=== PATIENT | female | born 1940 | race Caucasian/White ===

== ENCOUNTER 2023-10-01 06:16 | Inpatient (IN) | payer OTHER, SELFPAY ==
--- NOTE | 2023-08-27 09:19 | CM ---
Patient is scheduled for an elective R TKR on 10/01/23. Spoke with patient prior to surgery via telephone. Introduced role of Orthopedic Navigator. Patient reports that she lives with her in a one story home. There are three steps to enter.
She currently functions independently. She uses cane when she goes out of the house and a rollator for long distances. She has no other DME. She has never had VN services. PCP is Jeanette Batres.
Discussed orthopedic program and post surgical plans. Reviewed anticipated length of stay and that goal is for her to return home at discharge. Also reviewed outpatient PT. Patient is in agreement with tentative plan and will go directly to
outpatient PT. She will have support from her when she goes home.
Patient will complete online education.
Plan: Orthopedic Navigator will remain available to assist with the care of patient and will reassess discharge needs after surgery.
[2023-09-10 12:08] VITALS: BMI 31.2
[2023-09-10 13:48] LABS: Hematocrit 36.6 % (37.0-47.0); Hemoglobin 12.1 g/dL (12.0-16.0); Mean Corp Hgb Conc. 33.1 g/dL (33.0-37.0); Mean Corpuscular Volume 90.8 fL (81.0-99.0); Mean Platelet Volume 10.7 fL (7.4-10.4); Platelet Count 342 10^3/uL (130-400); Red Blood Cell Count 4.03 10^6/uL (4.20-5.40); Red Cell Dist. Width 13.4 % (11.5-14.5); White Blood Cell Count 10.4 10^3/uL (4.8-10.8)
[2023-09-10 14:04] LABS: ALT (SGPT) 13 U/L (0-35); AST (SGOT) 20 U/L (14-36); Albumin 3.8 g/dl (3.5-5.0); Alkaline Phosphatase 66 U/L (38-126); Blood Urea Nitrogen 22 mg/dl (7-17); Calcium 9.7 mg/dl (8.4-10.2); Carbon Dioxide 29 mmol/L (22-30); Chloride 98 mmol/L (98-107); Estimated Creatinine Clearance 49 ml/min; Glucose 91 mg/dl (70-99); Sodium 136 mmol/L (135-145); Total Bilirubin 0.4 mg/dl (0.2-1.3); Total Protein 7.2 g/dl (6.3-8.2)
[2023-09-10 14:09] LABS: Potassium 5.8 mmol/L (3.5-5.1)
[2023-09-10 16:40] VITALS: BMI 31.2
[2023-09-11 10:20] LABS: Glycohemoglobin (HgbA1c) 6.1 % (4.0-5.6)
[2023-10-01] VITALS (11 sets, daily range): BP systolic 116–156; BP diastolic 44–90; PULSE 67; BMI 31.2
[2023-10-01] MEDS: NORMOSOL-R 1000 IV (08:55)
[2023-10-01] MEDS: TYLENOL 650 MG PO ×4 (09:09→20:22)
[2023-10-01] MEDS: MORPHINE SULFATE 1 MG IV (12:54)
[2023-10-01] MEDS: NSS 1000 IV (13:01)
[2023-10-01] MEDS: ROXICODONE 5 MG PO (13:05)
[2023-10-01] MEDS: ROXICODONE 10 MG PO (14:09)
--- NOTE | 2023-10-01 14:47 | PTCARENOTE ---
Pt received from PACU into room 2107. R knee incision with some minor local swelling, ice pack in place. PT complains of knee pain at 6/10. Medicated with 10 of oxycodone prior to PT's initial assessment. NSR on tele, + radial/PT/DP pulses. Breath
sounds clear. Pt ordered lunch and is currently working with PT. Call spencer within reach, pt makes needs known.
--- NOTE | 2023-10-01 15:11 | W.PN.UPDATE ---
Update Note
Progress Note Update
R knee OA s/p R TKA w/ Dr Meraz 10/01/23
DVT prophylaxis - Eliquis at modified dosing, b/l venous foot pumps
- Discussed with surgeon - will resume home Eliquis dosing POD 5 due to previous provoked submassive PE
HTN - + parameters - monitor BP
PACs, asymptomatic, and PAF - monitor on tele
- Continue BB
- Eliquis as stated above
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
- Promote frequent and early ambulation as tolerated
- Plasma flow devices HIGHLY encouraged for use upon d/c
Acute blood loss anemia after spinal surgery, requiring blood transfusion - pre-op hgb thankfully stable
- Non-invasive hgb in AM
Hyperkalemia, improving on repeat labs - 2 gram potassium diet ordered
- NSS over Normosol post-op
Mild to moderate mitral regurgitation
Venous varicosities
Chronic postnasal drip
Questionable TIA 2019
Lumbar degenerative disc disease
Left-sided breast cancer, 2007, status post left lumpectomy
Thymoma, status post thymectomy 2013
Basal cell carcinoma, status post MOHS
Recurrent Lyme disease
Osteoporosis
COVID-19, 07/2023, without residual side effects
Hearing impairment bilaterally
Prediabetes, A1c 6.1
Obesity, BMI 31.2
[2023-10-01] MEDS: ANCEF 5 IV (17:01)
[2023-10-01] MEDS: LOPRESSOR 25 MG PO (17:02)
[2023-10-01] MEDS: SENOKOT 17.1999999999999993 MG PO (20:22)
[2023-10-01] MEDS: BACTROBAN 2% OINTMENT 1 APPLIC NASAL (20:22)
[2023-10-01] MEDS: ELIQUIS 2.5 MG PO (20:22)
[2023-10-01] MEDS: COLACE 100 MG PO (20:23)
[2023-10-01] MEDS: DECADRON 4 MG PO (20:23)
[2023-10-02] MEDS: TYLENOL PO ×2 (00:18→04:54)
[2023-10-02] MEDS: ANCEF 5 IV (02:43)
[2023-10-02 03:53] VITALS: BP 114/55
[2023-10-02 08:06] VITALS: BP 130/52
--- NOTE | 2023-10-02 08:58 | CM ---
Reviewed chart and held rounds with PT, OT and nursing. Patient admitted as planned for elective R TKR. Met with patient at bedside. Confirmed information previously obtained for assessment. Also discussed discharge plans. The plan is for patient to
return home at discharge. She will have support from her when she goes home. Patient will go directly to outpatient PT and will go to [facility]. She has an appointment scheduled for Sunday, 10/03.
Patient has a rollator, cane and rolling walker at home.
She will use [facility] pharmacy for discharge prescriptions.
[2023-10-02] MEDS: DECADRON 4 MG PO (09:27)
[2023-10-02] MEDS: SENOKOT 17.1999999999999993 MG PO (09:27)
[2023-10-02] MEDS: ELIQUIS 2.5 MG PO (09:27)
[2023-10-02] MEDS: TYLENOL 650 MG PO (09:27)
[2023-10-02] MEDS: LOPRESSOR 12.5 MG PO (09:27)
[2023-10-02] MEDS: COLACE 100 MG PO (09:28)
[2023-10-02] MEDS: BACTROBAN 2% OINTMENT 1 APPLIC NASAL (09:29)
[2023-10-02 09:45] VITALS: BP 138/59; PULSE 75; O2SAT 97
--- NOTE | 2023-10-02 09:49 | W.PN.ORTHO ---
Today's Communication / Plan
-
Await OT recs. Pt did well w/ PT this AM.
D/c later today if remaining clinically stable.
Assessment
.
Distal Motor Intact: Yes
Dressing:
Scant old incisional bleeding. Dressing otherwise C/D/I.
Assessment:
R knee OA s/p R TKA w/ Dr Meraz 10/01/23
DVT prophylaxis - Eliquis at modified dosing, b/l venous foot pumps
- Discussed with surgeon - will resume home Eliquis dosing POD 5 due to previous provoked submassive PE
HTN - + parameters - BPs stable
PACs, asymptomatic, and PAF - maintaining NSR on tele post-op
- Continue BB
- Eliquis as stated above
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
- Promote frequent and early ambulation as tolerated
- Plasma flow devices HIGHLY encouraged for use upon d/c
Acute blood loss anemia after spinal surgery, requiring blood transfusion - pre-op hgb thankfully stable
- Non-invasive hgb 11.6 POD 1
Hyperkalemia, improving on repeat labs - 2 gram potassium diet ordered
- NSS over Normosol post-op
Mild to moderate mitral regurgitation
Venous varicosities
Chronic postnasal drip
Questionable TIA 2019
Lumbar degenerative disc disease
Left-sided breast cancer, 2007, status post left lumpectomy
Thymoma, status post thymectomy 2013
Basal cell carcinoma, status post MOHS
Recurrent Lyme disease
Osteoporosis
COVID-07/2023, without residual side effects
Hearing impairment bilaterally
Prediabetes, A1c 6.1
Obesity, BMI 31.2
Plan
.
Surgery / Date: R TKA w/ Dr Meraz 10/01/23
DVT Prophylaxis: Other (Eliquis at modified dosing )
Activity:
Out of bed.
PT/OT
Discharge Plan: Home w/ Outpatient PT
Subjective
.
.:
Patient resting comfortably in her chair this AM.
R knee pain overall well controlled w/ minimal pain meds.
Denies any new significant complaints.
Eager for potential d/c today.
Vital Signs and Labs
.
Vital Signs and Labs:
Lab Results
09/10/23 12:17
09/10/23 12:17
Temp Pulse Resp BP Pulse Ox
98.2 F 59 18 130/52 97
10/02/23 08:06 10/02/23 08:06 10/02/23 08:06 10/02/23 08:06 10/02/23 08:06
Non-invasive Hgb result: 11.6
Physical Exam
-
HEENT: No pallor, cyanosis, or jaundice. Throat clear.
NECK: Supple. No JVD.
RESPIRATORY: Lungs clear to auscultation.
CVS: S1, S2 normal. RRR.�
ABDOMEN: Soft, non-tender. No distension. Obese.
EXTREMITIES: Mild post-surgical R knee edema. Strength equal, no calf pain with palpation/dorsiflexion. Calves soft.
RAILWAYS ASSISTANT: AOx3. No focal deficits. web development director grossly intact
[2023-10-02 11:03] VITALS: BP 137/58; PULSE 68; O2SAT 98
[2023-10-02 11:07] VITALS: BP 137/58
--- NOTE | 2023-10-02 11:22 | W.DS.TRANS ---
DC Summary - Pointing Machine Operator
-
Discharge Instructions:
Sleep Apnea Risk Low
Discharge Diagnosis/Procedures R knee OA s/p R TKA w/ Dr Meraz 10/01/23
Diet Regular
Activity As tolerated,With Walker
Driving Restrictions Not until seen by your Dr
Bathing Restrictions OK to Shower
Other Services PT
Wound Care Dressing to be removed 1 week post-surgery.
[place] to be removed at 2 week follow-up
appointment with surgeon's office.
Instructions:
Stand-Alone Forms: Total Hip/Knee Replacement D/C
Changes to Home Medications: Yes
Discharge Medications:
DC Medications w/original date entered in [employer]
B-complex with vitamin C 1 cap PO DAILY 09/04/23
apixaban 5 mg tablet (Eliquis) 5 mg PO BID 09/04/23
metoprolol tartrate 25 mg tablet 12.5 mg PO DAILY 09/04/23
metoprolol tartrate 25 mg tablet 25 mg PO QPM 09/04/23
mupirocin 2 % topical ointment 1 applic intranasal BID #1 tube 09/10/23
acetaminophen 500 mg tablet (Tylenol Extra Strength) 1,000 mg PO Q6H #60 tabs 10/02/23
apixaban 2.5 mg tablet (Eliquis) 2.5 mg PO BID #7 tabs 10/02/23
dexamethasone 4 mg tablet 4 mg PO BID #5 tabs 10/02/23
docusate sodium 100 mg capsule 100 mg PO BID #30 caps 10/02/23
ondansetron HCl 4 mg tablet 4 mg PO Q6H PRN nausea and vomiting #30 tabs 10/02/23
oxycodone 5 mg tablet 5 - 10 mg PO Q6H PRN moderate-severe pain #30 tabs 10/02/23
sennosides 8.6 mg tablet (Senna Lax) 17.2 mg PO BID #30 tabs 10/02/23
Home Medication Changes
acetaminophen 500 mg tablet (Tylenol Extra Strength) 1,000 mg PO Q6H #60 tabs 10/02/23
apixaban 2.5 mg tablet (Eliquis) 2.5 mg PO BID #7 tabs 10/02/23 - until POD 5
dexamethasone 4 mg tablet 4 mg PO BID #5 tabs 10/02/23
docusate sodium 100 mg capsule 100 mg PO BID #30 caps 10/02/23
ondansetron HCl 4 mg tablet 4 mg PO Q6H PRN nausea and vomiting #30 tabs 10/02/23
oxycodone 5 mg tablet 5 - 10 mg PO Q6H PRN moderate-severe pain #30 tabs 10/02/23
sennosides 8.6 mg tablet (Senna Lax) 17.2 mg PO BID #30 tabs 10/02/23
Pending Results: No
== END 2023-10-02 12:23 | disposition home or self-care (01) | DRG 470 ==
LOC: 2 SOUTH 06:16
PROVIDERS: ADMITTING PHYSICIAN Specialist; FAMILY PHYSICIAN Family Medicine
PROC: 0SRC0J9 Replacement of Right Knee Joint with Synthetic Substitute, Cemented, Open Approach (ICD-10-PCS; 2023-10-01)
DX: M17.11 Unilateral primary osteoarthritis, right knee (principal); I10 Essential (primary) hypertension; I48.0 Paroxysmal atrial fibrillation; Z68.31 Body mass index [BMI] 31.0-31.9, adult; E66.9 Obesity, unspecified; E87.5 Hyperkalemia; R73.03 Prediabetes
CPT/HCPCS: 36415; 73560; 80053; 83036; 85027; 87070; 97110; 97116; 97162; 97166; 97530; C1713; C1776

== ENCOUNTER → 2024-01-15 15:18 | Outpatient (REF) | payer OTHER, SELFPAY | LOC: PAVMRI 15:18 | PROVIDERS: ATTENDING PHYSICIAN Specialist; FAMILY PHYSICIAN Family Medicine | DX: M25.551 Pain in right hip (principal) | CPT/HCPCS: 73721 ==

== ENCOUNTER 2024-05-19 08:51 | Day surgery (SDC) | payer OTHER, SELFPAY ==
[2024-04-28 13:36] VITALS: BMI 31.4
[2024-04-28 14:59] LABS: Hematocrit 36.4 % (37.0-47.0); Hemoglobin 11.9 g/dL (12.0-16.0); Mean Corp Hgb Conc. 32.7 g/dL (33.0-37.0); Mean Corpuscular Hgb 28.4 pg (27.0-31.0); Mean Corpuscular Volume 86.9 fL (81.0-99.0); Mean Platelet Volume 10.8 fL (7.4-10.4); Platelet Count 274 10^3/uL (130-400); Red Blood Cell Count 4.19 10^6/uL (4.20-5.40); Red Cell Dist. Width 14.9 % (11.5-14.5); White Blood Cell Count 8.7 10^3/uL (4.8-10.8)
[2024-04-28 15:24] LABS: ALT (SGPT) 13 U/L (0-35); AST (SGOT) 22 U/L (14-36); Albumin 4.2 g/dl (3.5-5.0); Alkaline Phosphatase 66 U/L (38-126); Blood Urea Nitrogen 26 mg/dl (7-17); Carbon Dioxide 27 mmol/L (22-30); Chloride 103 mmol/L (98-107); Estimated Creatinine Clearance 45 ml/min; Glucose 90 mg/dl (70-99); Potassium 5.9 mmol/L (3.5-5.1); Sodium 142 mmol/L (135-145); Total Bilirubin 0.3 mg/dl (0.2-1.3); Total Protein 7.4 g/dl (6.3-8.2); eGFR 56.25
[2024-04-29 09:29] LABS: Glycohemoglobin (HgbA1c) 5.9 % (4.0-5.6)
[2024-05-13 09:01] VITALS: BMI 31.4
[2024-05-13 11:01] VITALS: BMI 31.4
[2024-05-19] VITALS (13 sets, daily range): BP systolic 110–183; BP diastolic 51–69; BMI 31.6
[2024-05-19] MEDS: TYLENOL 650 MG PO ×4 (09:05→23:46)
--- NOTE | 2024-05-19 09:54 | W.PN.ORTHO ---
Today's Communication / Plan
-
D/c when clinically stable.
Assessment
.
Distal Motor Intact: Yes
Dressing:
Clean, dry and intact.
Assessment:
L knee OA s/p L TKA w/ Dr Meraz 05/19/24
- s/p R TKA w/ Dr Meraz 10/01/23
DVT prophylaxis - Eliquis at modified dosing, b/l venous foot pumps
- Will resume home Eliquis dosing POD 3 if hemodynamically stable
HTN - + parameters - monitor BP
PACs, asymptomatic, and PAF - monitor on tele
- Continue BB
- Eliquis as stated above
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
- Promote frequent and early ambulation as tolerated
- Plasma flow devices HIGHLY encouraged for use upon d/c
Acute blood loss anemia after spinal surgery, requiring blood transfusion - pre-op hgb thankfully stable
- Non-invasive hgb in AM
Chronic hyperkalemia, improving on repeat labs - 2 gram potassium diet ordered
- NSS over Normosol post-op
Mild to moderate mitral regurgitation
Venous varicosities
Chronic postnasal drip
Questionable TIA 2019
Lumbar degenerative disc disease
Left-sided breast cancer, 2008, status post left lumpectomy
Thymoma, status post thymectomy 2013
Basal cell carcinoma, status post MOHS
Recurrent Lyme disease
Osteoporosis
COVID-19, 07/2023, without residual side effects
Hearing impairment bilaterally
Prediabetes, A1c 5.9
Obesity, BMI 31.6
Has prophylactic Cefadroxil upon d/c
Plan
.
Surgery / Date: L TKA w/ Dr Meraz 05/19/24
DVT Prophylaxis: Other (Eliquis )
Activity:
Out of bed.
PT/OT
Discharge Plan: Home w/ Outpatient PT
Subjective
.
.:
Patient resting comfortably in PACU.
Left knee pain tolerable w/ recent Oxycodone administration.
Denies any new significant complaints.
Vital Signs and Labs
.
Vital Signs and Labs:
Lab Results
04/28/24 13:32
04/28/24 13:32
Temp Pulse Resp BP Pulse Ox
98.6 F 57 16 183/63 98
05/19/24 08:57 05/19/24 08:57 05/19/24 08:57 05/19/24 08:57 05/19/24 08:57
Physical Exam
-
HEENT: No pallor, cyanosis, or jaundice. Throat clear.
NECK: Supple. No JVD.
RESPIRATORY: Lungs clear to auscultation.
CVS: S1, S2 normal. RRR.�
ABDOMEN: Soft, non-tender. No distension. Obese.
EXTREMITIES: Strength equal, no calf pain with palpation/dorsiflexion. Calves soft.
BIOINFORMATICS SUPPORT SPECIALIST: AOx3. No focal deficits. aegis operations specialist grossly intact
[2024-05-19] MEDS: NSS 1000 IV ×2 (09:58→13:58)
[2024-05-19] MEDS: MORPHINE SULFATE 1 MG IV ×3 (13:41→14:27)
[2024-05-19] MEDS: ROXICODONE 5 MG PO (14:13)
[2024-05-19] MEDS: TYLENOL PO (17:00)
--- NOTE | 2024-05-19 17:00 | PTCARENOTE ---
pt admitted to 2S room 2107 at 1635. pt oriented to room, call spencer, bed controls and plan of care with verbalized understanding. telemetry placed and reading SR/SB. Admission and assessment completed as documented. pt offering no c/o pain at time
of admission.
[2024-05-19] MEDS: LOPRESSOR 25 MG PO (17:02)
[2024-05-19] MEDS: BACTROBAN 2% OINTMENT 1 APPLIC NASAL (20:38)
[2024-05-19] MEDS: ANCEF 5 IV (20:38)
[2024-05-19] MEDS: DECADRON 4 MG PO (20:38)
[2024-05-19] MEDS: COLACE 100 MG PO (20:38)
[2024-05-19] MEDS: SENOKOT 17.2 MG PO (20:39)
[2024-05-19] MEDS: ELIQUIS 2.5 MG PO (20:39)
[2024-05-19] MEDS: PEPCID 20 MG PO (22:29)
[2024-05-20] MEDS: TYLENOL 650 MG PO ×3 (03:17→12:43)
[2024-05-20] MEDS: ANCEF 5 IV (03:17)
[2024-05-20 03:25] VITALS: BP 131/59
[2024-05-20 07:07] VITALS: BP 140/64
[2024-05-20] MEDS: SENOKOT 17.2 MG PO (08:56)
[2024-05-20] MEDS: BACTROBAN 2% OINTMENT 1 APPLIC NASAL (08:56)
[2024-05-20] MEDS: COLACE 100 MG PO (08:56)
[2024-05-20] MEDS: DECADRON 4 MG PO (08:56)
[2024-05-20] MEDS: ELIQUIS 2.5 MG PO (08:56)
[2024-05-20] MEDS: LOPRESSOR 12.5 MG PO (08:57)
[2024-05-20 10:04] VITALS: PULSE 64; O2SAT 95
[2024-05-20 10:23] VITALS: BP 162/71
--- NOTE | 2024-05-20 11:01 | CM ---
CM met with pt and spouse bedside
They reside in a 1SH with 3STE
Pt notes independence at baseline
Has a WW and SPC
No financial insecurities
PCP- Jeanette Batres
Rx- [facility]
PT/OT recs of outpt therapy
Pt has appt scheduled at [facility]
Appt scheduled for tomorrow 05/21
Spouse comfortable with transport home and car transfers
Discharge Disposition- home with outpt PT/OT- family transport
[2024-05-20 11:22] VITALS: BP 128/56
--- NOTE | 2024-05-20 11:23 | W.PN.ORTHO ---
Today's Communication / Plan
-
D/c today since clinically stable, did well w/ PT and OT.
Assessment
.
Distal Motor Intact: Yes
Dressing:
Scant areas of old incisional bleeding.
Assessment:
L knee OA s/p L TKA w/ Dr Meraz 05/19/24
- s/p R TKA w/ Dr Meraz 10/01/23
DVT prophylaxis - Eliquis at modified dosing, b/l venous foot pumps
- Will resume home Eliquis dosing POD 3 since hemodynamically stable
HTN - + parameters - BPs stable
PACs, asymptomatic, and PAF - maintaining NSR on tele
- Continue BB
- Eliquis as stated above
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
- Promote frequent and early ambulation as tolerated
- Plasma flow devices HIGHLY encouraged for use upon d/c - Pt notes she bought them w/ her prior R TKA but lost the industrial gas production operator. She has been in contact with the medical equipment department at [facility] in an attempt to obtain a new industrial gas production operator
Acute blood loss anemia after spinal surgery, requiring blood transfusion - pre-op hgb thankfully stable
Chronic hyperkalemia, improving on repeat labs - 2 gram potassium diet ordered
- NSS over Normosol post-op
Mild to moderate mitral regurgitation
Venous varicosities
Chronic postnasal drip
Questionable TIA 2019
Lumbar degenerative disc disease
Left-sided breast cancer, 2007, status post left lumpectomy
Thymoma, status post thymectomy 2013
Basal cell carcinoma, status post MOHS
Recurrent Lyme disease
Osteoporosis
COVID-1907/2023, without residual side effects
Hearing impairment bilaterally
Prediabetes, A1c 5.9
Obesity, BMI 31.6
Has prophylactic Cefadroxil upon d/c
Plan
.
Surgery / Date: L TKA w/ Dr Meraz 05/19/24
DVT Prophylaxis: Other (Eliquis )
Activity:
Out of bed.
PT/OT
Discharge Plan: Home w/ Outpatient PT
Subjective
.
.:
Patient resting comfortably in her chair.
L knee pain minimal and currently well tolerated.
Denies any new significant complaints.
Eager for potential d/c today.
Vital Signs and Labs
.
Vital Signs and Labs:
Lab Results
04/28/24 13:32
04/28/24 13:32
Temp Pulse Resp BP Pulse Ox
98.5 F 66 15 140/64 96
05/20/24 07:07 05/20/24 08:57 05/20/24 07:07 05/20/24 08:57 05/20/24 07:07
Physical Exam
-
HEENT: No pallor, cyanosis, or jaundice. Throat clear.
NECK: Supple. No JVD.
RESPIRATORY: Lungs clear to auscultation.
CVS: S1, S2 normal. RRR.�
ABDOMEN: Soft, non-tender. No distension. Obese.
EXTREMITIES: Expected post-surgical L knee edema. Strength equal, no calf pain with palpation/dorsiflexion. Calves soft.
HABILITATION WORKER: AOx3. No focal deficits. rn community health grossly intact
--- NOTE | 2024-05-20 11:35 | W.DS.TRANS ---
DC Summary - Manager Case Management
-
Discharge Instructions:
Sleep Apnea Risk Low
Discharge Diagnosis/Procedures L knee OA s/p L TKA w/ Dr Meraz 05/19/24
Diet Other diet
Additional Diets Low potassium diet
Activity As tolerated,With Walker
Driving Restrictions Not until seen by your Dr
Bathing Restrictions OK to Shower
Other Services PT
Wound Care Dressing to be removed 1 week post-surgery.
[place] to be removed at 2 week follow-up with
surgeon's office.
Instructions:
Stand-Alone Forms: Total Hip/Knee Replacement D/C
Changes to Home Medications: Yes
Discharge Medications:
DC Medications w/original date entered in [employer]
apixaban 5 mg tablet (Eliquis) 5 mg PO BID 09/04/23
metoprolol tartrate 25 mg tablet 12.5 mg PO DAILY 09/04/23
metoprolol tartrate 25 mg tablet 25 mg PO QPM 09/04/23
acetaminophen 500 mg tablet (Tylenol Extra Strength) 1,000 mg (2 x 500 mg) PO Q6H #60 tabs 10/02/23
mupirocin 2 % topical ointment 1 applic topical BID 05/13/24
Saccharomyces boulardii 250 mg capsule (Florastor) 250 mg PO BID #14 caps 05/20/24
apixaban 2.5 mg tablet (Eliquis) 2.5 mg PO BID #3 tabs 05/20/24
cefadroxil 500 mg capsule 500 mg PO BID #14 caps 05/20/24
dexamethasone 4 mg tablet 4 mg PO Q12H Anti-inflammatory #7 tabs 05/20/24
docusate sodium 100 mg capsule 100 mg PO BID #30 caps 05/20/24
ondansetron HCl 4 mg tablet 4 mg PO Q6H PRN nausea and vomiting #30 tabs 05/20/24
oxycodone 5 mg tablet 5 - 10 mg (1 - 2 x 5 mg) PO Q6H PRN moderate-severe pain #30 tabs 05/20/24
sennosides 8.6 mg tablet (Senna Laxative) 17.2 mg (2 x 8.6 mg) PO BID #30 tabs 05/20/24
Home Medication Changes
acetaminophen 500 mg tablet (Tylenol Extra Strength) 1,000 mg (2 x 500 mg) PO Q6H #60 tabs 10/02/23
Saccharomyces boulardii 250 mg capsule (Florastor) 250 mg PO BID #14 caps 05/20/24
apixaban 2.5 mg tablet (Eliquis) 2.5 mg PO BID #3 tabs 05/20/24 - until POD 3
cefadroxil 500 mg capsule 500 mg PO BID #14 caps 05/20/24
dexamethasone 4 mg tablet 4 mg PO Q12H Anti-inflammatory #7 tabs 05/20/24
docusate sodium 100 mg capsule 100 mg PO BID #30 caps 05/20/24
ondansetron HCl 4 mg tablet 4 mg PO Q6H PRN nausea and vomiting #30 tabs 05/20/24
oxycodone 5 mg tablet 5 - 10 mg (1 - 2 x 5 mg) PO Q6H PRN moderate-severe pain #30 tabs 05/20/24
sennosides 8.6 mg tablet (Senna Laxative) 17.2 mg (2 x 8.6 mg) PO BID #30 tabs 05/20/24
Pending Results: No
== END 2024-05-20 13:27 | disposition home or self-care (01) ==
LOC: SDS 08:51
PROVIDERS: ATTENDING PHYSICIAN Specialist; FAMILY PHYSICIAN Family Medicine; REFERRING PHYSICIAN Internal Medicine Cardiovascular Disease
DX: M17.12 Unilateral primary osteoarthritis, left knee (principal)
CPT/HCPCS: 27447; 36415; 73560; 80053; 83036; 85027; 86850; 86900; 86901; 87070; 97110; 97116; 97162; 97166; C1713; C1776

== ENCOUNTER 2025-04-30 17:47 | Inpatient (IN) | payer OTHER, SELFPAY ==
[2025-04-30] VITALS (7 sets, daily range): BP systolic 143–200; BP diastolic 57–118; BMI 31.7
--- NOTE | 2025-04-30 15:52 | EDRN ---
1520: After finishing triage, patient's walks into triage room. insulting nursing staff. told this RN to 'let him be, he is drunk.' RN asked patient if can find a safe ride home. Per , kids are unable because
they don't have a relationship with the patient. RN told patient he is a fall risk due to advanced age and obvious alcohol intoxication. Primary RN and security made aware.
[2025-04-30 15:57] LABS: Hematocrit 37.6 % (37.0-47.0); Hemoglobin 12.5 g/dL (12.0-16.0); Mean Corp Hgb Conc. 33.2 g/dL (33.0-37.0); Mean Corpuscular Volume 88.9 fL (81.0-99.0); Nucleated Red Blood Cells % 0 %; Platelet Count 336 10^3/uL (130-400); Red Cell Dist. Width 14.6 % (11.5-14.5)
--- NOTE | 2025-04-30 16:13 | ED.GENMED ---
History of Present Illness
General
Chief Complaint: Heart Rate Problem
Source: patient, spouse and physician
Time Seen by Provider: 04/30/25 15:36
History of Present Illness
History of Present Illness:
Note:
CHIEF COMPLAINT(S)
Bradycardia and episodes of feeling faint experienced during the past three years.
HISTORY OF PRESENT ILLNESS
The patient is an 84-year-old female with a history of atrial fibrillation currently managed with Metoprolol who presents with concerns of bradycardia. The patient reported a pulse of 26 on her Holter monitor, which was corroborated by her
physician, Dr. Potter, who advised her to go to the emergency room and called ahead to alert the ER team.
The patient reported an episode this morning at approximately 9:15 AM while sitting in a car waiting for her . She had another incident at 11:40 AM while sitting and reading a book. When she got out of the car and walked up a slight hill, an
alarm (likely from her heart monitor) was triggered. She initially mistook the alarm for a cell phone ringing. During this episode, she described feeling lightheaded, which she termed as 'wifty.' The sensation lasted approximately 30 seconds to a
minute and a half. She required a cart for support as she felt she could not move independently. The patient has experienced similar episodes over the past three years, lasting from a few seconds to several minutes but felt fine after she felt her
pulse regulate.
The patient denied any associated chest pain or dyspnea during these events.
PAST MEDICAL AND SURIGICAL HISTORY
Atrial fibrillation.
CHRONIC MEDICAL CONDITIONS SIGNIFICANTLY AFFECTING CARE
Atrial fibrillation.
ALLERGIES
Penicillin.
MEDICATIONS
Metoprolol: 12.5 mg in the morning and 25 mg at night.
REVIEW OF SYSTEMS
- Cardiovascular: History of atrial fibrillation with noted bradycardia.
- Neurological: Episodes of lightheadedness described as 'wifty.'
PHYSICAL EXAM
General: Alert, no acute distress.
Skin: Warm, dry.
Head: Normocephalic, atraumatic.
Neck: Supple, trachea midline.
Eye, Ear, Nose, Mouth, and Throat: Oral mucosa moist.
Cardiovascular: Normal peripheral perfusion, No edema.
Respiratory: Respirations are non-labored.
Gastrointestinal: Abdomen nondistended.
Back: Normal range of motion, Normal alignment.
Musculoskeletal: Normal range of motion, normal strength.
Neurological: Alert and oriented to person, place, time, and situation, No focal neurological deficit observed.
Psychiatric: Cooperative, appropriate mood & affect.
PROBLEM LIST
Acute:
- Bradycardia
- Lightheadedness
Chronic:
- Atrial fibrillation
PLAN
- Further evaluation of current medication dose of Metoprolol to ensure appropriate heart rate control without resulting in excessive bradycardia.
- Consideration of potential need for a pacemaker if bradycardia continues to be an issue despite medication adjustments.
DIFFERENTIAL DIAGNOSIS
The Differential Diagnosis includes, in no particular order and is not limited to:
- Sinus node dysfunction
- Advanced atrioventricular block
- Hypothyroidism
- Medication side effect (Metoprolol)
- Electrolyte imbalance
- Structural heart disease
- Postural orthostatic tachycardia syndrome (POTS)
- Dehydration-induced dizziness
- Acute Coronary Syndrome
- Vasovagal syncope
EKG
My independent EKG interpretation is:
- Time of EKG: Not specified
- Rhythm: Normal sinus rhythm
- Heart Rate: 64 bpm
- MD Interval: Normal
- QRS Duration: Normal
- QT Interval: Normal
- [place]: Normal
- Abnormalities: No acute ischemic changes observed
Disposition:
SUMMARY OF ENCOUNTER
An 84-year-old female presented to the emergency department with episodes of near syncope experienced over the last several years, with recent sinus pauses identified on an outpatient Holter monitor. The case was discussed with conveyor console operator
Abbey. The patient was found to have a normal sinus rhythm upon examination in the emergency department. The patient, who is on Metoprolol, exhibited some hypertension upon arrival, and her vitals will be continuously monitored. She is
anticoagulated and has existing records including a discharge summary from May 2024 which documented a history of hypertension, paroxysmal atrial fibrillation, and a submassive pulmonary embolism post-lumbar surgery. A total knee replacement is
also part of the patients surgical history.
DISPOSITION
Admit for likely pacemaker placement tomorrow.
ASSESSMENT
The patient is experiencing bradycardia with episodes of near syncope, in the context of a documented sinus node dysfunction, likely related to her atrial fibrillation management and the need for a review of her Metoprolol dosage.
MANAGEMENT OF THE PATIENTS CARE WAS DISCUSSED WITH
Dr. Potter (Field Supervisor), Hospitalist.
PLAN
Admission for monitoring and probable pacemaker placement due to the presence of significant bradycardia with sinus pauses.
INDEPENDENT REVIEW OF LABS AND INTERPRETATION OF TESTS
My independent EKG interpretation is a normal sinus rhythm with a heart rate of 64 bpm, with normal MD and QRS duration, and no acute ischemic changes.
MEDICATION RECONCILIATION
- Metoprolol
MEDICAL DECISION MAKING
- Complexity of Data Reviewed: Chronic conditions affecting care include atrial fibrillation, hypertension, and history of pulmonary embolism. Differential diagnosis includes sinus node dysfunction, advanced atrioventricular block, and medication
side effects among others.
- Data:
Category 1
The patients previous discharge summary and outpatient cardiology records were reviewed.
Category 2
My independent interpretation of the EKG revealed a normal sinus rhythm.
Category 3
Discussion of management with conveyor console operator Dr. Potter and the hospitalist team regarding admission and probable pacemaker placement.
CRITICAL CARE TIME
None.
DIAGNOSIS
- Bradycardia (ICD-10: R00.1)
- Atrial Fibrillation (ICD-10: I48.91)
- Hypertension (ICD-10: I10)
-near syncope
Phy Exam
Physical Exam
Physical Exam:
.
Course
Orders/Labs/Results
Orders:
Orders
04/30/25 Dinner
Regular
At Your Request: Full Participation
Does patient need a safe tray?: No
04/30/25 15:20
Electrocardiogram (*1) Urgent
Reason for Study: Chest Pain
Cardiac Monitoring- Treatment ONCE
EKG- Treatment ONCE
04/30/25 15:26
Complete Blood Count/With Diff Urgent
Comprehensive Metabolic Panel Urgent
Magnesium Urgent
TSH Urgent
Comment: MG & TSH ADDED ON BY FLOOR 4:20PM 04-30-25
04/30/25 16:18
Add On- LAB Urgent
Tests Added?: Mg, TSH
04/30/25 16:20
Vital Signs- Treatment ONCE
Frequency: Once
0.9% Sodium Chloride 500 ml [Nss] 500 ml IV BOLUS
04/30/25 17:05
Admit/Transfer Patient As Directed
Co-Sign Provider:
Level of Care: Inpatient admission
Assign to:: IVU
Physician / Group: Roxie
Diagnosis: Symptomatic bradycardia
Reason for Hospitalization: Pacemaker
Expected length of stay greater than two midnights?: Yes
ELOS- Estimated Length of Stay in days: 2
I certify the patient meets the requirements for IP care: Yes
PRN Pain Medication Management As Directed
May give lesser potent ordered pain med per pt: Yes
preference::
Protocol:: Medication orders for pain may be administered in a
manner that supports deferring to patient preference
when the pt is:
- Requesting an ordered lesser potent pain medication.
Least to most potent pain medications are defined
as: acetaminophen < NSAID < tramadol < opioids
(morphine, oxycodone, hydromorphone).
- Requesting a lesser dose of the same medication IF
ORDERED.
- Requesting a less intrusive route of administration
if both routes are prescribed by the provider (PO <
IV).
04/30/25 17:06
INT (Intravenous Needle Therapy) As Directed
Comment: #20 IV gauge catheter
Notify MD As Directed
Notify physician if: no consent on chart
OR/Surgery Prep As Directed
Type of Prep: cleanse patient with Chlorhexidine gluconate 2%
Surgical Procedure As Directed
Surgical Procedure: pacemaker
04/30/25 17:11
Code Status As Directed
Resuscitation Status: Full Code
04/30/25 17:12
Weight As Directed
Frequency: Once
04/30/25 19:08
Acetaminophen [Tylenol] 650 mg PO Q6HPRN PRN
04/30/25 19:08
CARDIOLOGY CONSULT Routine
Consulting Provider: Ciro Gates
Was physician already notified: Yes
Activity As Directed
Activity Level: With Assistance
Sequential Compression Device [Pneumatic Compression Sleeves] As Directed
Type: Knee high
DX Deep Vein Thrombosis Video Routine
05/01/25 06:00
Echo 2D MMode Color/Doppler IN AM
Reason for Study: symptomatic bradycardia
Comment: please do 1st thing in AM - needs prior to PPM. THank you!
NPO
Allow oral meds: Yes
Allow clear liquids: No
NPO with Ice Chips: Yes
BMP [Basic Metabolic Panel] IN AM
05/01/25 08:00
Aztreonam [Azactam] 2,000 mg IV PRE PROCEDURE ONE
Vancomycin [Vancocin] 1,000 mg 0.9% Sod Chloride 500 ml Irr [Nss Irrigation Bottle] 500 ml IRRIG CATH
Vancomycin [Vancocin] 1,500 mg 0.9% Sodium Chloride 500 ml [Nss] 500 ml IV PRE PROCEDURE
Vancomycin Surgical Prophylaxis Indication: Allergy: PCN or B-Lactam
Abnormal Lab Results
04/30/25
15:26
RDW 14.6 H %
(11.5-14.5)
Absolute Neuts (auto) 7.9 H 10^3/uL
(1.4-6.5)
Absolute Monos (auto) 0.8 H 10^3/uL
(0.1-0.6)
Lymphocytes % 12.2 L %
(20.5-51.1)
Potassium 5.2 H mmol/L
(3.5-5.1)
BUN 27 H mg/dl
(7-17)
Glucose 102 H mg/dl
(70-99)
04/30/25 15:26
04/30/25 15:26
Vital Signs
Initial and Last Documented VS:
Initial Vital Signs
Temp Pulse Resp BP Pulse Ox
98.5 F 66 18 200/87 97
04/30/25 15:18 04/30/25 15:18 04/30/25 15:18 04/30/25 15:18 04/30/25 15:18
Last Documented Vital Signs
Temp Pulse Resp BP Pulse Ox
97.9 F 67 18 174/118 98
04/30/25 19:16 04/30/25 19:20 04/30/25 19:16 04/30/25 19:20 04/30/25 19:16
*Pulse Oximetry
SaO2: 97
Oxygen Mode of Delivery: Room air
Patient hypoxic: no
*Critical Care Note
Total Time (30-74mins, 75-104mins- exclusive of procedures): Not Applicable
ED Attending Note
-
Portions of this chart may have been created with voice recognition software.� Occasional wrong word or��sound alike� substitutions may have occurred due to the inherent limitations of voice recognition software.
Discharge Plan
Departure
Patient Disposition: Admit
Date of Disposition: 04/30/25
Time of Disposition: 16:14
Admit to: IVU
Presentation/result/management discussed w/ accepting MD/DO: Hospitalist
Discharge Problem:
Near syncope, Sinus pause
Interventions
Interventions:
*General Assessment Last Done: 04/30/25 16:20
*Neglect/Abuse Screening Last Done: 04/30/25 16:20
*ED- Fall Risk Assessment Last Done: 04/30/25 16:20
*ED COVID-19 Vaccine History Last Done: 04/30/25 19:33
*Nursing Disposition Last Done: 04/30/25 19:25
ED- Cardiac Assessment Last Done: 04/30/25 16:20
ED- Pulmonary Assessment Last Done: 04/30/25 16:20
Discharge Date and Time
Discharge Date/Time: 04/30/25 19:25
[2025-04-30 16:16] LABS: ALT (SGPT) 12 U/L (0-35); AST (SGOT) 19 U/L (14-36); Albumin 4.2 g/dl (3.5-5.0); Alkaline Phosphatase 66 U/L (38-126); Blood Urea Nitrogen 27 mg/dl (7-17); Calcium 9.9 mg/dl (8.4-10.2); Carbon Dioxide 26 mmol/L (22-30); Chloride 103 mmol/L (98-107); Glucose 102 mg/dl (70-99); Potassium 5.2 mmol/L (3.5-5.1); Sodium 135 mmol/L (135-145); Total Protein 7.6 g/dl (6.3-8.2); eGFR 55.90
--- NOTE | 2025-04-30 16:17 | CON.CAR ---
Addendum entered and electronically signed by Ciro Gates MD 04/30/25 17:17:
I saw and examined the patient.
The RISK ANALYST's note was reviewed and I agree with the note.
84-year-old female with history of PAF, chronic anticoagulation with Eliquis, left-sided breast lumpectomy and lymph node biopies, history of PE ( postop) said intermittent dizziness and brief presyncopal symptoms which prompted outpatient cardiac
monitoring. Office was notified that patient had long pauses 4 seconds and has had periods of bradycardia. Patient states that she has had increased episodes of dizziness over the last month and has them multiple times per week. Episodes occur
while at rest. She has had no true episodes of syncope. Patient currently comfortable no complaints of chest pain or shortness of breath. Currently in sinus rhythm with stable blood pressure. No recent fever or infection issues. Last dose of
Eliquis was this morning. Patient is on low-dose metoprolol and further review with primary her primary technical operations specialist patient is felt to need continued use of metoprolol for history of PAF. Based on all the above pacemaker has been recommended.
Procedure reviewed with patient. She is in agreement. Will plan as follows
- Monitor on telemetry
- Bedrest
- Echocardiogram
- Hold Eliquis
- N.p.o. after midnight for pacemaker tomorrow
Original Note:
Consultation
Consultation Request
Date/Time Consultation Requested: 04/30/25 1620
Date/Time Consultation Performed: 04/30/25 1630
Requesting Provider: Dr. Blum
Performing Provider: Winifred PEREZ for Dr. Gates
Reason for Consultation: symptomatic bradycardia
Medical History
-
Chief Complaint: dizziness
History of Present Illness:
84 y/o female (patient of Dr. Potter) with PAF on Eliquis, dyslipidemia, hx PE after surgery in past who was seen in cardiology office recently and reported irregular HR and possible bradycardia with dizziness. Dizziness has been worsening for
the past few weeks. It can happen in any position and it feels like she may pass out, though she has not. Therefore, an OP monitor was ordered for further evaluation. Today, that monitor revealed 4 second pause. She was recommended to come to the
hospital with plans for pacemaker placement. She is in no distress at the time of my assessment.
Past Medical History
Past Medical History: Arrhythmias, Hypercholesterolemia and Other (as above)
Social History
Tobacco: Non-Smoker
Family History
Family History: Reviewed & Not Pertinent
Allergies / Home Medications
Allergy/AdvReac Type Severity Reaction Status Date / Time
Penicillins Allergy Hives/Rash; Verified 05/19/24 15:34
2016
sulindac (From Clinoril) Allergy Hives/RASH Verified 05/19/24 15:34
�Medication �Instructions �Recorded �Confirmed �Type
metoprolol tartrate 25 mg tablet 12.5 mg PO DAILY 09/04/23 04/30/25 History
metoprolol tartrate 25 mg tablet 25 mg PO QPM 09/04/23 04/30/25 History
Lactobac no.2-Bifidobac no.1-S. 1 cap PO DAILY 04/30/25 04/30/25 History
thermo 112.5 billion cell capsule
(Visbiome)
acetaminophen 650 mg 1,300 mg PO [id number] PRN mild pain 04/30/25 04/30/25 History
tablet,extended release (Tylenol
Arthritis Pain)
apixaban 5 mg tablet (Eliquis) 5 mg PO BID 04/30/25 04/30/25 History
cholecalciferol (vitamin D3) 25 25 mcg PO DAILY 04/30/25 04/30/25 History
mcg (1,000 unit) tablet (Vitamin
D3)
cranberry fruit 450 mg tablet 450 mg PO DAILY 04/30/25 04/30/25 History
(cranberry)
Review of Systems
-
History Source: Patient
All other systems: Negative unless noted
Neurological: Dizzy
Physical Exam
Vital Signs
Temp Pulse Resp BP Pulse Ox
98.5 F 66 18 200/87 97
04/30/25 15:18 04/30/25 15:18 04/30/25 15:18 04/30/25 15:18 04/30/25 16:17
Lab Results
04/30/25 15:26
04/30/25 15:26
Physical Exam
General: Well Developed and Well Nourished
HEENT: Normocephalic and Anicteric
Respiratory: Clear and Non Labored Respirations
Cardiac: Regular Rhythm
Musculoskeletal: No Edema
Skin: Warm and Dry
Neuro: AO x 3
Psych: Calm
Impression / Plan
-
Symptomatic bradycardia:
-severe in that patient has been having dizzy episodes, which has worsened over the past month (multiple times per week); 4 second pause noted on monitor- symptomatic. Follow telemetry.
-plan for pacemaker tomorrow- procedure discussed in detail with patient
-check TSH
-echo in AM prior to PPM
-follow telemetry
-hold metoprolol until after PPM
PAF:
-stable in SR. On metoprolol for this indication- hold as above.
-hold Eliquis tonight and tomorrow AM for procedure, then resume when safe per EP post procedure
HLD:
-not on meds, but stable per OP notes
Data Reviewed
-
EKG: Tracing Personally Visualized and interpreted (NSR 64 BPM)
Medical Tests (Nuc Med, Echo etc): Report Reviewed by me (echo 07/04/23: Normal LV size and function with EF 60-65% 2. Mild LAE 3. Mild to moderate MR 4. Borderline pulmonary artery hypertension. Estimated PA systolic pressure 38mm Hg)
Labs: Labs Reviewed by me
[2025-04-30 16:33] LABS: Magnesium 1.9 mg/dl (1.6-2.3)
[2025-04-30] MEDS: NSS 500 IV (16:58)
--- NOTE | 2025-04-30 17:14 | HPS.HSE ---
Family Physician
-
Family Physician:
Chief Complaint
-
Lightheadedness
History of Present Illness
84-year-old female referred to the emergency room by her osteopathy doctor for evaluation of symptomatic bradycardia detected by her outpatient monitor.
Symptoms started year and a half ago but have become progressively more frequent and more symptomatic with lightheadedness. Denies vertigo, chest pain, shortness of breath.
Metoprolol was reduced to 12.5 mg twice daily but despite dose reduction she still has episodes of bradycardia into the 20s.
Medical History
Past Medical History
Past Medical History: Reports Other
Additional Past Medical History:
Paroxysmal atrial fibrillation
Hyperlipidemia
History of pulmonary embolism after surgery
Breast cancer
Osteoporosis
Past Surgical History: Reports Orthopedic
Social History
Tobacco: Non-smoker
Alcohol: Occasional
Drug: None
Personal:
Living: With Family
Employment: Not Employed
Family History
Family History: Not pertinent
Allergies / Home Medications
Allergies reflects when Allergies were last updated in [employer].
Home Medications with original date entered in [employer]
Allergy/Medication List:
Allergies
Allergy/AdvReac Type Severity Reaction Status Date / Time
Penicillins Allergy Hives/Rash; Verified 05/19/24 15:34
2017
sulindac (From Clinoril) Allergy Hives/RASH Verified 05/19/24 15:34
Home Medications
metoprolol tartrate 25 mg tablet 12.5 mg PO DAILY 09/04/23
metoprolol tartrate 25 mg tablet 25 mg PO QPM 09/04/23
Lactobac no.2-Bifidobac no.1-S. thermo 112.5 billion cell capsule (Visbiome) 1 cap PO DAILY 04/30/25
acetaminophen 650 mg tablet,extended release (Tylenol Arthritis Pain) 1,300 mg PO [id number] PRN mild pain 04/30/25
apixaban 5 mg tablet (Eliquis) 5 mg PO BID 04/30/25
cholecalciferol (vitamin D3) 25 mcg (1,000 unit) tablet (Vitamin D3) 25 mcg PO DAILY 04/30/25
cranberry fruit 450 mg tablet (cranberry) 450 mg PO DAILY 04/30/25
Review of Systems
-
History Source: Patient
A 12 point ROS was completed and negative except as noted: Yes
Physical Exam
Vital Signs
Vital Signs
Temp Pulse Resp BP Pulse Ox
98.5 F 66 18 200/87 97
04/30/25 15:18 04/30/25 15:18 04/30/25 15:18 04/30/25 15:18 04/30/25 16:17
Physical Exam
General: Well Developed, Well Nourished, No Apparent Distress and Comfortable
HEENT: NormoCephalic and Anicteric
Respiratory: Clear
Cardiac: S1/S2 and Regular Rhythm
Breast: Deferred by me
GI: Soft, Non Tender and Non Distended
Genito-urinary: Deferred by me
Musculoskeletal: No Clubbing, No Cyanosis and No Edema
Skin: Warm and Dry
Neuro: AO x 3
Hematologic/Lymphatic: No Lymphadenopathy
Psych: Calm
Laboratory Results
-
04/30/25 15:26
04/30/25 15:26
Laboratory Results
Total Bilirubin 0.4 mg/dl (0.2-1.3) 04/30/25 15:26
AST 19 U/L (14-36) 04/30/25 15:26
ALT 12 U/L (0-35) 04/30/25 15:26
Alkaline Phosphatase 66 U/L (38-126) 04/30/25 15:26
Impression/Plan
-
Symptomatic bradycardia -admit to IVU. Consult cardiology. Hold metoprolol, Eliquis in preparation for pacemaker placement tomorrow. N.p.o. after midnight.
Check TSH.
Hyperkalemia -potassium 5.2. Treat conservatively, check labs in the morning.
Paroxysmal atrial fibrillation -controlled.
Dyslipidemia
History of breast cancer
History of pulmonary embolism after surgery
Osteoporosis
Obesity due to excess calories
Full code
updated at the bedside.
[2025-04-30 17:28] LABS: TSH 4.41 uIU/ml (0.47-4.68)
[2025-05-01] VITALS (12 sets, daily range): BP systolic 101–157; BP diastolic 40–70
--- NOTE | 2025-05-01 01:34 | PTCARENOTE ---
Addendum entered by Yina Kessler RN 05/01/25 06:10:
CHG completed, left arm IV placed. NPO after midnight
Original Note:
Pt admitted to room 2244 for symptomatic bradycardia. Pt NSR with PVCs on monitor. Denies any pain or discomfort. Ambulates independently in the room with her own RW. Pt oriented to the room. Call spencer within reach
[2025-05-01 06:13] LABS: Blood Urea Nitrogen 20 mg/dl (7-17); Calcium 9.4 mg/dl (8.4-10.2); Carbon Dioxide 26 mmol/L (22-30); Chloride 106 mmol/L (98-107); Estimated Creatinine Clearance 60 ml/min; Glucose 81 mg/dl (70-99); Potassium 4.8 mmol/L (3.5-5.1); Sodium 139 mmol/L (135-145); eGFR > 60.00
--- NOTE | 2025-05-01 11:18 | W.PN.HOSP.TC ---
Today's Communication/Plan
-
Await pacemaker
Assessment / Plan
Assessment / Plan
Gen-AAOx3, NAD
HEENT-NC, AT, anicteric, clear oral mm
Neck-supple
CV-reg, no M, +S1/S2
Lungs-clear B/L
Abd-soft, NT, ND
Ext-no edema
Musculoskeletal-no cyanosis, clubbing
Skin-warm and dry
Neuro-grossly non-focal
Psych-calm, cooperative
Symptomatic bradycardia -awaiting permanent pacemaker today. Hemodynamically stable.
TSH 4.41.
Echocardiogram shows normal LV systolic function, EF 55 to 60%, moderate MR.
Hyperkalemia -improved.
Paroxysmal atrial fibrillation -controlled.
Dyslipidemia
History of breast cancer
History of pulmonary embolism after surgery
Osteoporosis
Obesity due to excess calories
Full code
Anticipated Discharge: Within 24 hours
Subjective/Interval History
-
Date of Service: May 01, 2025
Patient seen and examined. Complaining of hunger.
Objective Data
-
Labs:
Laboratory Results
05/01/25
04:54
Sodium 139
Potassium 4.8
Chloride 106
Carbon Dioxide 26
BUN 20 H
Creatinine 0.8
Glucose 81
Calcium 9.4
Vital Signs:
Vital Signs
Temp Pulse Resp BP Pulse Ox
98.4 F 61 16 157/69 95
05/01/25 07:09 05/01/25 08:00 05/01/25 07:09 05/01/25 07:12 05/01/25 09:09
I&O
04/30/25 05/01/25 05/02/25
06:59 06:59 06:59
Intake Total 825 / 825
Balance 825 / 825
Review of Systems
-
History Source: Patient
All other systems: Reviewed and negative
--- NOTE | 2025-05-01 11:21 | CM ---
Chart reviewed. Patient is independent of ADLS, lives with her in a [address], [address], ambulates with a rollator. Plan is for the patient to return home. CM to follow
[2025-05-01] MEDS: VANCOCIN 530 MG IV (14:28)
[2025-05-01] MEDS: AZACTAM 2000 MG IV (14:45)
[2025-05-01] MEDS: STERILE WATER FOR INJECTION 10 ML IV (14:45)
--- NOTE | 2025-05-01 16:28 | ITS.CL.PACE ---
Proj Engineer - Pacemaker Implant
Pacemaker Implant
Procedure Report:
Date of Procedure: May 01, 2025
Procedure: Pacemaker Implantation. Lef and right upper extremity venograms.
Indication: The pacemaker is for the treatment of nonreversible symptomatic bradycardia due to sinus node dysfunction. The monitoring company reported Mobitz II block associated with symptoms. I feel that PACs produced symptomatic sinus pause of
over 3 seconds. I did not see heart block.
Performing physician: Quincy Miranda MD, [facility].
Implants:
Pulse Generator: [employer]; Model# [id number]; Serial# [id number].
RA Lead: Medtronic; Model# 5076-45cm; Serial# [id number].
RV Lead: [employer]; Model# 3830-69cm; Serial# [id number].
Technique: A time out was performed. 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 A 10 mL left upper
extremity venogram demonstrated extensive robust collateral with sluggish flow in the subclavian that limited understanding of the disease of the left subclavian vein The left axillary and cephalic veins were patent and there was some flow in left
subclavian vein. The procedure site was identified. The patient was anesthetized by the anesthesia service. Preoperative vancomycin and aztreonam was administered. The patient was prepped and draped in the usual fashion. Local anesthetic was
applied to the right prepectoral subcutaneous tissue. The left axillary vein was accessed with a single micropuncture without difficulty and a retained guidewire technique was used. An approximate 2.5 inch incision was made parallel to the clavicle
and 2-3 finger breadths below it. Dissection was carried to the fascia. A subcutaneous pocket was created with blunt dissection. The leads were introduced with hemostatic peel away introducer sheaths. The RV lead was placed using utilizing the
[employer] His delivery catheter ([id number]) that was advanced to the left bundle area as confirmed by fluoroscopy in the SAO TOMEAN and SINGLETARY projections. The lead tip was advanced. PVC morphology was reviewed. When a satisfactory location was identified (W
pattern observed) the lead was screwed into position with serial turns. Septal engagement was confirmed with gentle torque applied to the guide sheath. After each series of turns (2-3) unipolar sensed morphology and impedance, and paced morphology
of V1 was analyzed. The lead was further advanced until satisfactory morphology and electrical characteristics were confirmed. The RV lead was placed in the first and last location evaluated. The long guiding sheath was cut and removed from the RV
without change in lead position, impedance, sensing, or capture. The ventricular lead was secured to the pectoralis muscle and fascia with two 0-silk sutures. The atrial lead was placed in the right atrial appendage. 8 volt pacing from each lead did
not capture the diaphragm. The atrial leads was secured to the pectoralis muscle and fascia. The leads were appropriately attached to the device. The pocket was irrigated with antibiotic solution. The device and leads were placed in the pocket. The
incision was closed in three layers with absorbable suture. Steri-strips and a silver impregnated dressing were placed. Estimated blood loss was 5 ml. There were no complications. Fluoroscopy time 6.1 minutes and DAP 3.49 GyCM2. The device was then
interrogated after skin closure.
I encountered no difficulty crossing the stenosis of the right subclavian vein.
Lead Analysis:
RA lead: P: 1.8 mV; Threshold: 1.25 V @ 0.4 ms; Impedance: 590 ohms.
RV lead: R: 8 mV; Threshold: 0.5 V @ 0.4 ms; Impedance: 870 ohms.
Paced QRS characteristics: V1 has qR morphology and measures 120 ms in duration, LVAT (stim to peak V5/V6) is 62 ms, and R peak V1 to R peak V6 is 44 ms.
Final Programming: MVP (AAIR to DDDR) 60-130 bpm. Max AV delay 400 ms.
Conclusions:
1. Uncomplicated Medtronic pacemaker implant.
2. The pacing system is MRI conditional.
3. Successful conduction system lead placement.
4. 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
Recommendation: Routine post pacemaker care.
cc: Fernando ferris MD and Jeanette Batres MD.
--- NOTE | 2025-05-01 19:15 | PTCARENOTE ---
Pt had pacemaker placed in right anterior chest, dressing dry and intact, no sign of bleeding or hematoma. Pt OOB with minimal assistance, voiding without problem. Pt denies any discomfort. Telemetry shows sinus rhythm.
--- NOTE | 2025-05-01 21:08 | PTCARENOTE ---
Rec'd PT at change of shift. Pt denies ant pain or discomfort. SR on TELE monitor with occasional PAC's, VSS, and AAO*3. Pt with right upper chest wall pacer site intact. Pt resistant/uncooperative with R limb restrictions despite reinforcement
from staff with education provided. PT taken down to chest Xray by RN via wheelchair and escorted back to room safely. Pt now resting with call spencer in reach. See MAR and flowchart for full pt care and assessment.
[2025-05-02 05:00] VITALS: BP 140/59
[2025-05-02 05:17] VITALS: BMI 31.3
[2025-05-02 05:36] LABS: Hematocrit 35.7 % (37.0-47.0); Hemoglobin 11.6 g/dL (12.0-16.0); Mean Corp Hgb Conc. 32.5 g/dL (33.0-37.0); Mean Corpuscular Volume 87.9 fL (81.0-99.0); Platelet Count 274 10^3/uL (130-400); Red Cell Dist. Width 14.6 % (11.5-14.5)
[2025-05-02 05:54] LABS: Blood Urea Nitrogen 17 mg/dl (7-17); Calcium 8.9 mg/dl (8.4-10.2); Carbon Dioxide 25 mmol/L (22-30); Chloride 105 mmol/L (98-107); Estimated Creatinine Clearance 60 ml/min; Glucose 86 mg/dl (70-99); Magnesium 1.9 mg/dl (1.6-2.3); Potassium 4.8 mmol/L (3.5-5.1); Sodium 135 mmol/L (135-145); eGFR > 60.00
[2025-05-02 07:05] VITALS: BP 148/55
--- NOTE | 2025-05-02 07:41 | W.PN.CD ---
Addendum entered and electronically signed by Ciro Gates MD 05/02/25 08:16:
I saw and examined the patient.
The CUSTOMS COLLECTOR's note was reviewed and I agree with the note.
lelo feels well. pacer site is fine.
plan for discharge today
As per EP - Resume Eliquis Sunday
Original Note:
Today's Communication / Plan
-
Resume metoprolol
Resume apixaban tomorrow evening
Impression / Plan
-
I/P: 84F paroxysmal atrial fibrillation (on apixaban), left-sided breast lumpectomy and lymph node biopsies, history of PE ( postop) said intermittent dizziness and brief presyncopal symptoms which prompted outpatient cardiac monitoring. Office
was notified that patient had long pauses 4 seconds and has had periods of bradycardia.
Severe symptomatic bradycardia s/p PPM
- Severe in that patient has been having dizzy episodes, which has worsened over the past month (multiple times per week)
- 4 second pause noted on monitor, symptomatic
- S/P PPM with Dr. Miranda 05/01/2025
Paroxysmal atrial fibrillation
- S/p PPM as above, may resume metoprolol
- Resume apixaban 05/03/2025 in the evening per EP
Hypercholesterolemia, not on medical therapy, chronic and stable
SUBJECTIVE:
Activity restrictions reviewed with the patient. Outpatient follow-up reviewed with the patient. She verbalized understanding.
Physical Exam
Vital Signs/Labs
Vital Signs
Temp Pulse Resp BP Pulse Ox
98.5 F 75 16 140/59 98
05/02/25 07:02 05/02/25 05:00 05/02/25 07:02 05/02/25 05:00 05/02/25 07:02
05/01/25 05/02/25 05/03/25
06:59 06:59 06:59
Actual Weight 89 kg 87.9 kg
05/02/25 05:12
05/02/25 05:12
Magnesium 1.9 mg/dl (1.6-2.3) 05/02/25 05:12
TSH 4.41 uIU/ml (0.47-4.68) 04/30/25 15:26
Physical Exam
Constitutional: No acute distress and Comfortable
EENT: Anicteric and Moist mucous membranes
Cardiovascular: Rhythm & rate is regular, Pedal edema is absent and S1S2 is normal
Respiratory: Respiratory effort normal and Lungs clear to auscul.
GI: Soft, Distention absent, Flat and Non tender
Neuro/Psych: Alert and Oriented
Other: Skin and Cardiac Device Site (Old drainage. No pocket fullness. No hematoma.)
Data Reviewed
-
Date of Service: May 02, 2025
--- NOTE | 2025-05-02 07:54 | W.PN.HOSP.TC ---
Addendum entered and electronically signed by Clem Faustin DO 05/02/25 12:58:
Called by nursing to assess left elbow laceration that unfortunately happened after patient was being transferred out of her wheelchair during the discharge process. Patient fell on her left elbow at the time.
Small laceration noted on left elbow without significant bleeding. Doubt fracture or other trauma. Elbow with normal range of motion.
Steri-Strip and dry dressing to be applied to left elbow, discussed with nursing.
Stable for discharge otherwise from my standpoint. Cardiology to assess pacer site. Discussed with Dr. Gates.
updated at the bedside.
Original Note:
Today's Communication/Plan
-
Discharge
Assessment / Plan
Assessment / Plan
Gen-AAOx3, NAD
HEENT-NC, AT, anicteric, clear oral mm
Neck-supple
CV-reg, no M, +S1/S2
Lungs-clear B/L
Abd-soft, NT, ND
Ext-no edema
Musculoskeletal-no cyanosis, clubbing
Skin-warm and dry
Neuro-grossly non-focal
Psych-calm, cooperative
Symptomatic bradycardia -stable after pacemaker placement 05/01. Hemodynamically stable.
TSH 4.41.
Echocardiogram shows normal LV systolic function, EF 55 to 60%, moderate MR.
Hyperkalemia -improved.
Paroxysmal atrial fibrillation -controlled. Cardiology recommends resuming Eliquis 05/03 evening. Continue metoprolol.
Dyslipidemia
History of breast cancer
History of pulmonary embolism after surgery
Osteoporosis
Obesity due to excess calories
Full code
Dispo -medically stable for discharge home today. Outpatient follow-up with PCP and cardiology.
32-minute spent in discharge process.
Anticipated Discharge: Today
Subjective/Interval History
-
Date of Service: May 02, 2025
Patient seen and examined. No complaints.
Objective Data
-
Labs:
Laboratory Results
05/02/25
05:12
WBC 10.3
Hgb 11.6 L
Hct 35.7 L
Plt Count 274
Sodium 135
Potassium 4.8
Chloride 105
Carbon Dioxide 25
BUN 17
Creatinine 0.8
Glucose 86
Calcium 8.9
Vital Signs:
Vital Signs
Temp Pulse Resp BP Pulse Ox
98.5 F 69 16 148/55 99
05/02/25 07:02 05/02/25 07:05 05/02/25 07:02 05/02/25 07:05 05/02/25 07:05
I&O
05/01/25 05/02/25 05/03/25
06:59 06:59 06:59
Intake Total 825 / 825 720 / 720
Balance 825 / 825 720 / 720
Review of Systems
-
History Source: Patient
All other systems: Reviewed and negative
--- NOTE | 2025-05-02 07:55 | W.DS.TRANS ---
DC Summary - Community Health Educator
-
Discharge Instructions:
Sleep Apnea Risk Low
Discharge Diagnosis/Procedures Severe symptomatic bradycardia
Procedure: Pacemaker implantation 05/01/2025
Diet Low Cholesterol,Low Fat
Activity No strenuous activity
Additional Activity See attached instructions
Driving Restrictions No driving for 1 week
Bathing Restrictions OK to Shower
Instructions:
Stand-Alone Forms: DC Inst - Implanted Device
Changes to Home Medications: No
Discharge Medications:
DC Medications w/original date entered in [facility]
metoprolol tartrate 25 mg tablet 12.5 mg PO DAILY 09/04/23
metoprolol tartrate 25 mg tablet 25 mg PO QPM 09/04/23
Lactobac no.2-Bifidobac no.1-S. thermo 112.5 billion cell capsule (Visbiome) 1 cap PO DAILY 04/30/25
acetaminophen 650 mg tablet,extended release (Tylenol Arthritis Pain) 1,300 mg PO [id number] PRN mild pain 04/30/25
apixaban 5 mg tablet (Eliquis) 5 mg PO BID 04/30/25
Held on 05/02/25. Instructions: Resume on 05/03/25. Resume evening of May 03.
cholecalciferol (vitamin D3) 25 mcg (1,000 unit) tablet (Vitamin D3) 25 mcg PO DAILY 04/30/25
cranberry fruit 450 mg tablet (cranberry) 450 mg PO DAILY 04/30/25
Home Medication Changes
Pending Results: No
[2025-05-02] MEDS: LOPRESSOR 12.5 MG PO (08:45)
[2025-05-02] MEDS: TYLENOL 650 MG PO (08:46)
[2025-05-02 11:07] VITALS: BP 135/54
--- NOTE | 2025-05-02 13:24 | PTCARENOTE ---
Pt seen by Drs. Gates and Bharath. Pt given tylenol for 3/10 right chest incisional discomfort with good relief. Telemetry and IV devices removed. Discharge instructions reviewed with pt and her regarding activity and driving restrictions,
wound care, pain management, medications and their possible side effects, reporting cares and concerns and follow up appt's. Excellent understanding verbalized. Pt escorted out via wheelchair. Pt very independent, quick to stand up from wheelchair
assisted by RN. Pts jeblossom caught in bifold footrest which dropped down and she went down slowly to the ground landing on her left elbow. Pt denied any discomfort anywhere else on her body, right chest pacer site unchanged. RN called for assistance
to help pt stand up and get back in wheelchair. Pt taken back to her room. Drs. Sinha and Yajaria notified and came to assess pt. Left elbow wound cleaned with saline, steristrips applied to 3mm cut and a bandaid. Pt taken back outside and
discharged to home with instructions to report any concerns.
--- NOTE | 2025-05-02 13:42 | W.PN.UPDATE ---
Update Note
Progress Note Update
Called by nursing staff patient was being discharged and was in a wheelchair and then fell after trying to get out of the chair. She has a small laceration on her elbow which has been reviewed by Dr. Ramachandran and has been bandaged. She did not
have any head trauma no trauma to pacemaker site. I saw the patient she feels fine and I examined the pacemaker site and it appears fine as well. No new recommendations. Patient appears stable for discharge
== END 2025-05-02 13:40 | disposition home or self-care (01) | DRG 244 ==
LOC: IVU 17:47
PROVIDERS: Internal Medicine Cardiovascular Disease; Nurse Practitioner Adult Health; Student in an Organized Health Care Education/Training Program; ADMITTING PHYSICIAN Hospitalist; CONSULT PHYSICIAN Internal Medicine Cardiovascular Disease; EMERGENCY PHYSICIAN Emergency Medicine; FAMILY PHYSICIAN Family Medicine
PROC: 02H63JZ Insertion of Pacemaker Lead into Right Atrium, Percutaneous Approach (ICD-10-PCS; 2025-05-01)
PROC: 02HK3JZ Insertion of Pacemaker Lead into Right Ventricle, Percutaneous Approach (ICD-10-PCS; 2025-05-01)
PROC: 0JH606Z Insertion of Pacemaker, Dual Chamber into Chest Subcutaneous Tissue and Fascia, Open Approach (ICD-10-PCS; 2025-05-01)
DX: I49.5 Sick sinus syndrome (principal); I48.0 Paroxysmal atrial fibrillation; E87.5 Hyperkalemia; I10 Essential (primary) hypertension; I44.1 Atrioventricular block, second degree; M81.0 Age-related osteoporosis without current pathological fracture; E78.00 Pure hypercholesterolemia, unspecified; E66.09 Other obesity due to excess calories; S51.012A Laceration without foreign body of left elbow, initial encounter; W01.0XXA Fall on same level from slipping, tripping and stumbling without subsequent striking against object, initial encounter; Z68.31 Body mass index [BMI] 31.0-31.9, adult; Z79.01 Long term (current) use of anticoagulants; Z86.711 Personal history of pulmonary embolism
CPT/HCPCS: 33208; 71045; 80048; 80053; 83735; 84443; 85025; 85027; 93005; 93306; 99284; C1769; C1785; C1887; C1894; C1898; Q9967